=== PATIENT | male | born 1940 | race Caucasian/White ===

== ENCOUNTER 2019-09-26 12:06 | Emergency (ER) | payer MEDICARE, OTHER ==
[~2019-09-26] VITALS: Ht 167.6 cm; Wt 79.3 kg
[2019-09-26 12:06] VITALS: BP 143/70
[2019-09-26] MEDS ORDERED: SODIUM BICARBONATE 8.4% INJ 50 ML SYRINGE ONE (12:07)
[2019-09-26] MEDS ORDERED: EPINEPHrine 1MG/10ML SYRINGE 1.5IN ONE (12:07)
[2019-09-26] MEDS ORDERED: IPRATROPIUM 0.5MG/ALBUTEROL 2.5MG INH SOL UD 3ML (DUONEB)(J7620) NEB PRN (12:15)
[2019-09-26 12:24] LABS: ABG BASE EXCESS -12.5 (-2.0-2.0); ABG HCO3 15.4 MEQ/L (22.0-26.0); ABG O2 SATURATION 87.3 % (95.0-99.0); ABG PARTIAL PRESSURE CO2 42.4 mmHg (35.0-45.0); ABG PARTIAL PRESSURE O2 65.6 mmHg (75.0-100.0); ABG STANDARD HCO3 14.7 MEQ/L (22.0-26.0); ABG TOTAL CO2 16.7 MEQ/L (23.0-31.0); ABG pH (ARTERIAL) 7.179 UNITS (7.350-7.450)
[2019-09-26 12:29] LABS: BASO # 0.1 10^3/uL (0.0-0.2); BASO % 0.6 % (0.0-1.0); EOS # 0.2 10^3/uL (0.0-0.5); EOS % 1.6 % (0.0-3.0); HEMATOCRIT 50.8 % (42.0-52.0); HEMOGLOBIN 14.6 g/dl (13.5-17.5); LYMPH % 16.8 % (24.0-44.0); MEAN CORPUSCULAR HEMOGLOBIN 29.1 pg (27.0-33.0); MEAN CORPUSCULAR HGB CONC 28.7 g/dl (32.0-36.5); MEAN CORPUSCULAR VOLUME 101.4 fl (80.0-96.0); MONO # 0.9 10^3/uL (0.0-0.8); MONO % 7.5 % (0.0-5.0); NEUTROPHILS # 8.6 10^3/uL (1.5-8.5); NEUTROPHILS % 72.3 % (36.0-66.0); PLATELET COUNT, AUTOMATED 186 10^3/uL (150-450); RED BLOOD COUNT 5.01 10^6/uL (4.30-6.10); WHITE BLOOD COUNT 11.9 10^3/uL (4.0-10.0)
[2019-09-26] MEDS ORDERED: ASPIRIN 81 MG CHEW TABLET PO ONE (12:30)
[2019-09-26] MEDS ORDERED: CLOPIDOGREL 300 MG TAB (PLAVIX) PO STA (12:30)
[2019-09-26] MEDS ORDERED: HEPARIN SOD (PORCINE) 5000 UNITS/ML VIAL IV ONE (12:30)
[2019-09-26] MEDS ORDERED: TENECTEPLASE 50 MG KIT (TNKase) (J3101 PER 1MG) IV ONE (12:30)
[2019-09-26] MEDS ORDERED: HEPARIN DRIP 25,000 UNITS in IV 1 EA IV SCH (12:30)
[2019-09-26] MEDS ORDERED: EPINEPHrine 1MG/10ML SYRINGE 1.5IN IV STA ×5 (12:51→13:06)
[2019-09-26 12:55] LABS: INR 1.12; PROTHROMBIN TIME 14.1 SECONDS (11.8-14.0)
[2019-09-26 12:56] LABS: PARTIAL THROMBOPLASTIN TIME 24.3 SECONDS (25.0-38.4)
[2019-09-26] MEDS ORDERED: SODIUM BICARBONATE 8.4% INJ 50 ML SYRINGE IV STA (12:58)
[2019-09-26 13:02] LABS: ALBUMIN 3.2 GM/DL (3.2-5.2); ALT/SGPT 86 U/L (12-78); BILIRUBIN,DIRECT 0.1 MG/DL (0.0-0.2); BILIRUBIN,TOTAL 0.7 MG/DL (0.2-1.0); BLOOD UREA NITROGEN 31 MG/DL (7-18); CALCIUM LEVEL 9.3 MG/DL (8.8-10.2); CARBON DIOXIDE LEVEL 22 MEQ/L (21-32); CHLORIDE LEVEL 104 MEQ/L (98-107); CK-MB VALUE MASS 2.4 NG/ML (<3.6); CPK CREATINE PHOSPHOKINASE 194 U/L (39-308); CREATININE FOR GFR 1.85 MG/DL (0.70-1.30); GLOMERULAR FILTRATION RATE 37.7 (>42); GLUCOSE, FASTING 274 MG/DL (70-100); MB/CK RELATIVE INDEX 1.24 (< OR =4); NT-PRO BNP 39 PG/ML (<450); POTASSIUM SERUM 5.4 MEQ/L (3.5-5.1); SODIUM LEVEL 138 MEQ/L (136-145); THYROXINE (T4) 10.3 UG/DL (4.5-12.0); TOTAL PROTEIN 7.3 GM/DL (6.4-8.2); TROPONIN I < 0.02 NG/ML (< 0.10)
--- NOTE | 2019-09-26 13:24 | REP ---
Portable chest x-ray: Single view. History: Dyspnea and cough. No comparison study. Findings: There is emphysematous change in the lung bases bilaterally along with bibasilar linear fibrosis. No acute infiltrate is seen. Heart is not enlarged. The aorta is tortuous. There are advanced degenerative changes in the shoulders. Impression: Bibasilar emphysematous change and bibasilar fibrosis. No acute infiltrate. Electronically Signed by Shaw Cardenas MD 09/26/2019 02:13 P
--- NOTE | 2019-09-27 06:31 | ECGEPIP ---
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
== END 2019-09-26 14:38 | disposition expired ==
LOC: M ED 12:06 → EDBD 12:06 → M ED 14:38
DX: I21.3 ST elevation (STEMI) myocardial infarction of unspecified site (principal); I21.9 Acute myocardial infarction, unspecified; I46.9 Cardiac arrest, cause unspecified; R06.03 Acute respiratory distress; J44.9 Chronic obstructive pulmonary disease, unspecified; Z87.891 Personal history of nicotine dependence
CPT/HCPCS: 31500; 36600; 71045; 80048; 80076; 82550; 82553; 82803; 83605; 83880; 84436; 84443; 84484; 85025; 85610; 85730; 87040; 92950; 93005; 93041; 94660; 96374; 96375; 99285; J3101